=== PATIENT | male | born 1940 | race Caucasian/White ===

== ENCOUNTER → 2016-09-29 | Outpatient (CLI) | payer MEDICARE ==
[~2016-09-29] MED LIST: ASPI81 PO; EZET10 PO; LIPI40TA PO; LISI10TA PO; TAB-TAB PO
[2016-09-29 13:29] LABS: ANION GAP 9 MEQ/L (5-15); AST (GOT) 43 U/L (15-37); BICARBONATE 25.4 MEQ/L (21.0-32.0); BLOOD UREA NITROGEN 20 MG/DL (7-18); CHLORIDE 104 MEQ/L (98-107); GLOMERULAR FILTRATION RATE 56 ML/MIN (>89); GLUCOSE,FASTING 116 MG/DL (74-99); SODIUM (NA) 138 MEQ/L (136-145)
[2016-09-29 13:32] LABS: ALKALINE PHOSPHATASE 34 U/L (45-117); ALT (GPT) 66 U/L (12-78); LDL CHOLESTEROL 235 MG/DL (0-99); TOTAL BILIRUBIN ADULT 0.6 MG/DL (0.2-1.0)
[2016-09-29 13:33] LABS: CREATINE KINASE 95 U/L (39-308)
== END ==
LOC: PLAB 10:20
PROVIDERS: ATTEND Family Medicine
DX: E78.2 Mixed hyperlipidemia (principal)
CPT/HCPCS: 36415; 80053; 80061; 82550